=== PATIENT | male | born 1955 | race Hispanic/Latino ===

== ENCOUNTER → 2024-07-20 | Outpatient (CLI) | payer MEDICARE | END | disposition home or self-care (01) | LOC: SHCH 14:40 | PROVIDERS: ATTEND Student in an Organized Health Care Education/Training Program | DX: I73.9 Peripheral vascular disease, unspecified (principal); M79.605 Pain in left leg; M79.604 Pain in right leg | CPT/HCPCS: 93925; 93970 ==

== ENCOUNTER 2024-10-08 11:02 | Day surgery (SDC) | payer MEDICARE ==
[2024-10-04 14:42] LABS: BASOPHILS # (AUTO) 0.04 K/uL (0.00-0.20); BASOPHILS % (AUTO) 0.7 % (0.0-5.0); EOSINOPHILS # (AUTO) 0.25 K/uL (0.00-0.70); EOSINOPHILS % (AUTO) 4.1 % (0.0-8.0); HEMATOCRIT 36.3 % (42-54); IMMATURE GRANULOCYTE ABSOLUTE 0.02 K/uL (0-1); LYMPHOCYTES # (AUTO) 1.4 K/uL (1.0-4.8); LYMPHOCYTES % (AUTO) 22.5 % (21.0-51.0); MEAN CORPUSCULAR HEMOGLOBIN 29.8 pg (27.0-33.0); MEAN CORPUSCULAR HGB CONC 33.1 g/dL (32.0-36.0); MEAN CORPUSCULAR VOLUME 90.1 fL (79-99); MONOCYTES # (AUTO) 0.4 K/uL (0.1-1.0); MONOCYTES % (AUTO) 6.7 % (3.0-13.0); NEUTROPHILS % (AUTO) 65.7 % (40.0-77.0); PLATELET COUNT (AUTO) 194 K/uL (130-400); RED BLOOD CELL COUNT(AUTO) 4.03 MIL/uL (4.50-6.20); RED CELL DISTRIBUTION WIDTH 13.7 % (11.0-15.5); WHITE BLOOD COUNT (AUTO) 6.1 K/uL (4.8-10.8)
[2024-10-04 14:45] VITALS: BP 172/68; PULSE 100; RESP 18; TEMP 98.4
[2024-10-04 14:56] LABS: CREATININE 1.6 mg/dL (0.5-1.3); POTASSIUM 4.4 mmol/L (3.5-5.1)
[2024-10-04 15:05] LABS: INR 1.02 (0.85-1.15); PROTHROMBIN TIME 10.8 SEC (9.6-11.6)
[2024-10-04 15:06] LABS: PARTIAL THROMBOPLASTIN TIME 28.4 SEC (26.3-35.5)
[2024-10-04 15:53] LABS: APPEARANCE,URINE CLEAR (CLEAR); BILIRUBIN,URINE NEGATIVE (NEGATIVE); COLOR,URINE LIGHT-YELLOW (YELLOW); GLUCOSE, URINE (UA) NEGATIVE (NEGATIVE); KETONES,URINE NEGATIVE (NEGATIVE); LEUKOCYTE ESTERASE ,URINE NEGATIVE Leu/uL (NEGATIVE); NITRATE,URINE NEGATIVE (NEGATIVE); OCCULT BLOOD,URINE NEGATIVE (NEGATIVE); PROTEIN,URINE NEGATIVE (NEGATIVE); UROBILINOGEN,URINE 0.2 mg/dL (0.2-1.0)
--- NOTE | 2024-10-04 16:01 | HMCIMG ---
CHEST 1VW REASON: PREOP COMPARISON: None. FINDINGS: Single view of the chest was obtained. Lungs are clear. Heart size is normal. There is no pulmonary vascular congestion. Mediastinum and bony thorax appear unremarkable. IMPRESSION: 1. Normal single view chest x-ray.
[2024-10-04 16:06] LABS: ADD UA MICROSCOPIC NO
[2024-10-04 16:33] LABS: B-TYPE NATRIURETIC PEPTIDE 45 pg/mL (0-100)
--- NOTE | 2024-10-05 07:28 | EKG ---
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
--- NOTE | 2024-10-07 10:18 | NUR ---
RE: LABS REPORTED BMP RESULTS TO DR Jaqueline BETANCUR, NO NEW ORDERS RECEIVED.
[~2024-10-08] VITALS: Ht 162.6 cm; Wt 81.3 kg
[2024-10-08] VITALS (10 sets, daily range): BP systolic 138–187; BP diastolic 69–84; PULSE 92–117; RESP 13–20; TEMP 97.2–97.3
[2024-10-08] MEDS ORDERED: AMLO-257 PO (12:41)
[2024-10-08] MEDS ORDERED: ATOR40TA71 PO (12:41)
[2024-10-08] MEDS ORDERED: ASPI-449 PO (12:41)
[2024-10-08] MEDS ORDERED: CILO100T3 PO (12:41)
[2024-10-08] MEDS ORDERED: LOSA100T59 PO (12:41)
[2024-10-08] MEDS ORDERED: CLOP75TA32 PO (12:41)
[2024-10-08] MEDS ORDERED: HEParin-NS 1,000 UNIT/500 ML 1,000 ML IV ONE (16:02)
[2024-10-08] MEDS ORDERED: IODIXANOL 320 MG/ML 100 ML VIAL ONE (16:02)
[2024-10-08] MEDS ORDERED: HEParin 10,000 UNIT/10ML (1,000 UNIT/ML) VIAL ONE (16:02)
[2024-10-08] MEDS ORDERED: NITROGLYCERIN 50MG VIAL ONE (16:02)
[2024-10-08] MEDS ORDERED: LIDOCAINE HCL 400MG/20ML VIAL ONE (16:02)
[2024-10-08] MEDS ORDERED: FENTanyl CITRate PF 50 MCG/1 ML 2ML VIAL ONE (16:27)
[2024-10-08] MEDS ORDERED: MIDAZOLAM HCL 1 MG/ML 2ML VIAL ONE ×2 (16:27→16:52)
[2024-10-08] MEDS ORDERED: hydrALAZine 20MG/ML VIAL ONE (16:57)
[2024-10-08] MEDS ORDERED: GLUCAGON 1MG KIT 1 MG ML IM PRN (17:30)
[2024-10-08] MEDS ORDERED: 0.9%NACL 1000ML 1,000 ML IV SCH (17:30)
[2024-10-08] MEDS ORDERED: DEXTROSE 50%-WATER 50 ML DISP.SYRIN IV PRN (17:30)
--- NOTE | 2024-10-08 17:38 | PRN ---
PERIPHERAL ANGIOGRAM REPORT: Giorgi Hudson MD 10/08/2024 INDICATION: Severe b/l LE PAD Abnormal LE arterial Doppler Claudication PROCEDURE: Following informed consent the patient was taken to the computer laboratory technician in the fasting state a condition where he was draped in sterilized in usual fashion. Access was obtained via the left common femoral artery under ultrasound guidance with 1st wall past puncture. We placed a 6 Japanese arterial sheath in the left common femoral artery which was then aspirated and flushed. We then performed a limited left iliofemoral angiography. We then advanced an 035 wire to the ascending aorta under fluoroscopic guidance. We then advanced an Omni catheter over the wire to the distal abdominal aorta and we then performed abdominal aortogram. Given patient's significant and heavily calcified proximal common iliac disease we did not advanced the Omni catheter into the right SFA. We performed bilateral lower extremity angiogram with runoff. Following review of the angiographic images a decision was made to terminate the procedure. All wires and catheters removed from the body. A 6 Japanese Perclose was deployed over the left common femoral artery with a patent hemostasis. Patient tolerated procedure well with no postprocedure complication was transferred to computer laboratory technician holding in stable condition FINDINGS: Abdominal aorta is heavily calcified with 20-30% distal stenosis RIGHT: Common iliac is heavily calcified with 90-95% proximal stenosis External iliac is diffusely calcified and patent but becomes 100% CANNON CREWMEMBER as it transitioned to the common femoral Internal iliac is heavily calcified and patent Right common femoral artery has 100% CANNON CREWMEMBER and reconstitutes prior to the bifurcation of the profunda and SFA Profunda is robust and provides significant collaterals to the distal SFA and infrapopliteal vessels SFA is heavily calcified, small caliber with 100% mid CANNON CREWMEMBER extending to the mid- distal SFA Popliteal artery is patent and calcified Anterior tibial artery has 100% CANNON CREWMEMBER proximally extending to the foot and does not reconstitute Tibioperoneal trunk is widely patent Peroneal artery is patent to the foot Posterior tibial artery is patent to the foot Pedal arch is incomplete LEFT: Common iliac is heavily calcified with 20-30% diffuse disease External iliac is diffusely calcified and patent Internal iliac is heavily calcified with 90% proximal stenosis Right common femoral artery is patent with mild diffuse disease Profunda is robust and provides significant collaterals to the distal SFA and infrapopliteal vessels SFA is heavily calcified, small caliber with 100% proximal CANNON CREWMEMBER extending to the mid-distal SFA Popliteal artery is patent and calcified Anterior tibial artery has mild diffuse disease but is patent to the foot Tibioperoneal trunk is widely patent Peroneal artery is patent to the foot Posterior tibial artery is patent to the foot Pedal arch is incomplete CONCLUSION: Patient has severe bilateral PAD We will consult CV surgery for consideration of lower extremity bypass Continue current medication regimen Follow up in the Cardiology Clinic in 1-2 weeks post discharge GIORGI Pascual MD, MD Oct 08, 2024 17:38
--- NOTE | 2024-10-08 19:27 | NUR ---
Informed Dr Hudson of sustained tachycardia 115's - 125's. Patient asymptomatic didier pain or issue. Groin site clean and dry with no sign of bleeding or hematoma. Ate small amount of dinner with help of Granddaughter, Mary. Dr. Hudson responded that he would "Optimize his BP meds in Clinic"
--- NOTE | 2024-10-08 20:42 | NUR ---
Had large Jello and iced water. Voided 450 mls clear light estela urine to urinal. Full and complete discharge instructions given to Patient and Family (Granddaughter, Mary) both verbally and in writing. Explained Cardiac Catheterization procedure precautions and follow up. Dr. Hudson spoke with them both earlier updating them on Angiogram finding and need for CV consult. He stated they will be contacted with the details this week. All questions answered. PIV removed with catheter tip intact. Groin site and clean, dry without any sign of bleeding, bruising or hematoma. Addendum: 10/08/24 at 2118 by REINIER ORELLANA RN RN W/C to POV via ER entrace with Mary Luther. to home.
--- NOTE | 2024-10-08 21:18 | NUR ---
Remains aox4. Femoral site without issue. W/C to POC with Granddaughter, Mary to home.
== END 2024-10-08 21:15 | disposition home or self-care (01) ==
LOC: DAH 11:02
PROVIDERS: ATTEND Student in an Organized Health Care Education/Training Program
DX: I70.213 Atherosclerosis of native arteries of extremities with intermittent claudication, bilateral legs (principal); I35.0 Nonrheumatic aortic (valve) stenosis; I70.92 Chronic total occlusion of artery of the extremities; E78.5 Hyperlipidemia, unspecified; I11.9 Hypertensive heart disease without heart failure; R29.898 Other symptoms and signs involving the musculoskeletal system; B07.0 Plantar wart; Z79.01 Long term (current) use of anticoagulants; Z79.899 Other long term (current) drug therapy
CPT/HCPCS: 80048; 83880; 85025; 85610; 85730; 81003; 36415; 71045; 93005; 75630; 36200; C1894 ×2; C1769 ×2; C1760; J3010; J3490 ×2; J0360; J2250 ×2; J1644; Q9967; A4215; A4222; A4221; A4663; A4216; A4606; A4223 ×3; 36247; 75625; 75716; 99156; 99157